=== PATIENT | female | born 1960 | race Caucasian/White ===

== ENCOUNTER 2018-03-30 10:40 | Inpatient (IN) | payer MEDICAID ==
[~2018-03-30] VITALS: Ht 157.5 cm; Wt 88.0 kg
[2018-03-30] MEDS ORDERED: SODIUM CHLORIDE 0.9% 1,000 ML IV ONE (11:34)
[2018-03-30] MEDS ORDERED: ONDANSETRON HCL 4MG/2ML INJ IV STA (11:34)
[2018-03-30] MEDS ORDERED: ACETAMINOPHEN 325MG TABLET PO ONE (11:45)
[2018-03-30 12:05] LABS: HEMATOCRIT. 41.5 % (36.0-48.0); HEMOGLOBIN. 13.9 g/dL (12.0-16.0); MEAN CORPUSCULAR HEMOGLOBIN 30.1 pg (28.0-32.0); MEAN CORPUSCULAR VOLUME 89.7 fL (81.0-99.0); MEAN PLATELET VOLUME 8.4 fl (7.4-10.4); PLATELET 235 x1000/uL (130-400); RED BLOOD CELL COUNT 4.62 mill/uL (4.2-5.4); RED CELL DISTRIBUTION WIDTH 13.8 % (11.6-14.6)
[2018-03-30 12:13] LABS: PROTHROMBIN TIME 10.5 sec (9.1-11.1)
[2018-03-30 12:14] LABS: CHLORIDE 99 mEq/L (98-107)
[2018-03-30 12:39] LABS: PLATELET ESTIMATE NORMAL
[2018-03-30] MEDS ORDERED: CLINDAMYCIN 900 MG in DEXTROSE 5% WATER 50 ML IV ONE (12:45)
[2018-03-30] MEDS ORDERED: VANCOMYCIN 1 G PREMIX 200 ML IV ONE (12:45)
[2018-03-30] MEDS ORDERED: ACETAMINOPHEN 325MG TABLET PO PRN (13:45)
[2018-03-30] MEDS ORDERED: ONDANSETRON HCL 4MG/2ML INJ IV PRN (13:45)
[2018-03-30] MEDS ORDERED: IPRATROPIUM/ALBUTEROL 0.5-3(2.5)MG/3ML NEB INH PRN (13:45)
[2018-03-30] MEDS ORDERED: ENOXAPARIN 40MG/0.4ML SYR SUBCUT SCH (13:45)
[2018-03-30] MEDS ORDERED: DOCUSATE SODIUM 100MG CAPSULE PO PRN (13:45)
[2018-03-30] MEDS ORDERED: HYDROCODONE/ACETAMINOPHEN 5/325MG TABLET PO PRN (13:45)
[2018-03-30] MEDS ORDERED: CLONIDINE 0.1MG TABLET PO PRN (13:45)
[2018-03-30] MEDS ORDERED: MAGNESIUM/ALUMINUM HYDROXIDE/SIMETHICONE 30ML UDC PO PRN (13:45)
[2018-03-30 15:30] VITALS: BP 126/80
[2018-03-30] MEDS: SODIUM CHLORIDE 0.9% 1,000 ML IV SCH (17:08)
[2018-03-30] MEDS ORDERED: LISI-604 PO (17:40)
[2018-03-30] MEDS ORDERED: HYDR25TA PO (17:40)
[2018-03-30] MEDS ORDERED: ASPI-1159 PO (17:40)
[2018-03-30] MEDS ORDERED: PIPERACILLIN/TAZ 3.375G PREMIX 50 ML IV SCH (18:00)
[2018-03-30] MEDS: VANCOMYCIN 1 G PREMIX 200 ML IV SCH (18:01)
[2018-03-30] MEDS: CLOTRIMAZOLE 1% CREAM 30GM TOP SCH (18:04)
[2018-03-30 20:00] VITALS: BP 102/63
[2018-03-30] MEDS: ENOXAPARIN 30MG/0.3ML SYR SUBCUT SCH (20:47)
[2018-03-30] MEDS: LEVOFLOXACIN 500MG PREMIX 100 ML IV SCH (20:47)
[2018-03-30 20:55] LABS: CHLORIDE 100 mEq/L (98-107)
[2018-03-31] VITALS: BP 95/60
[2018-03-31] MEDS ORDERED: POTASSIUM CHLORIDE 20MEQ TABLET SR PO NR (03:30)
[2018-03-31 04:00] VITALS: BP 101/64
[2018-03-31 08:00] VITALS: BP 107/63
[2018-03-31] MEDS: ENOXAPARIN 30MG/0.3ML SYR SUBCUT SCH ×2 (08:54→20:34)
[2018-03-31] MEDS: SODIUM CHLORIDE 0.9% 1,000 ML IV SCH (08:55)
[2018-03-31] MEDS: CLOTRIMAZOLE 1% CREAM 30GM TOP SCH ×2 (08:55→20:34)
[2018-03-31] MEDS: LISINOPRIL 20MG TABLET PO SCH (09:55)
[2018-03-31] MEDS: HYDROCHLOROTHIAZIDE 25MG TABLET PO SCH (09:55)
[2018-03-31 12:00] VITALS: BP 112/61
[2018-03-31] MEDS: VANCOMYCIN 1 G PREMIX 200 ML IV SCH (12:20)
[2018-03-31 15:41] LABS: BASOPHILS % 0.3 % (0.0-2.0); EOSINOPHILS % 2.2 % (0.0-5.0); HEMATOCRIT. 39.7 % (36.0-48.0); HEMOGLOBIN. 13.3 g/dL (12.0-16.0); LYMPHOCYTES % 9.2 % (20.0-50.0); MEAN CORPUSCULAR HEMOGLOBIN 30.2 pg (28.0-32.0); MEAN CORPUSCULAR VOLUME 90.1 fL (81.0-99.0); MEAN PLATELET VOLUME 8.7 fl (7.4-10.4); MONOCYTES % 4.3 % (2.0-8.0); PLATELET 238 x1000/uL (130-400); RED BLOOD CELL COUNT 4.41 mill/uL (4.2-5.4); RED CELL DISTRIBUTION WIDTH 13.7 % (11.6-14.6)
[2018-03-31 15:53] LABS: CHLORIDE 99 mEq/L (98-107)
[2018-03-31 16:00] VITALS: BP 106/66
[2018-03-31 16:34] LABS: CLARITY URINE CLEAR (CLEAR); COLOR URINE YELLOW (YELLOW); KETONES URINE TRACE (NEGATIVE); LEUKOCYTE ESTERASE URINE 2+ (NEGATIVE); NITRITE URINE NEGATIVE (NEGATIVE); OCCULT BLOOD URINE NEGATIVE (NEGATIVE); PH URINE 6.5 (4.5-8.0); PROTEIN URINE NEGATIVE (NEGATIVE); SPECIFIC GRAVITY URINE 1.014 (1.005-1.030)
[2018-03-31 19:31] LABS: *AMPHETAMINES SCREEN URINE NEGATIVE (NEGATIVE); *BARBITURATES SCREEN URINE NEGATIVE (NEGATIVE); *BENZODIAZEPINES SCREEN URINE NEGATIVE (NEGATIVE); *COCAINE SCREEN URINE NEGATIVE (NEGATIVE); CANNABINOID URINE SCREEN NEGATIVE (NEGATIVE); METHADONE URINE SCREEN NEGATIVE (NEGATIVE); OPIATES URINE SCREEN PRESUMTIVE POSITIVE (NEGATIVE); PHENCYCLIDINE URINE SCREEN NEGATIVE (NEGATIVE)
[2018-03-31 20:00] VITALS: BP 102/54
[2018-03-31] MEDS: LEVOFLOXACIN 500MG PREMIX 100 ML IV SCH (20:33)
[2018-03-31 22:14] LABS: BASOPHILS % 0.5 % (0.0-2.0); EOSINOPHILS % 3.7 % (0.0-5.0); HEMATOCRIT. 37.8 % (36.0-48.0); HEMOGLOBIN. 12.7 g/dL (12.0-16.0); LYMPHOCYTES % 10.8 % (20.0-50.0); MEAN CORPUSCULAR HEMOGLOBIN 30.2 pg (28.0-32.0); MEAN CORPUSCULAR VOLUME 89.9 fL (81.0-99.0); MEAN PLATELET VOLUME 8.7 fl (7.4-10.4); MONOCYTES % 7.9 % (2.0-8.0); NEUTROPHILS % 77.1 % (40.0-76.0); PLATELET 226 x1000/uL (130-400); RED BLOOD CELL COUNT 4.21 mill/uL (4.2-5.4); RED CELL DISTRIBUTION WIDTH 13.7 % (11.6-14.6)
[2018-03-31] MEDS: VANCOMYCIN 750 MG PREMIX 150 ML IV SCH (23:10)
[2018-04-01] VITALS (7 sets, daily range): BP systolic 99–131; BP diastolic 50–86
[2018-04-01 07:50] LABS: PHOSPHORUS 2.5 mg/dL (2.5-4.9)
[2018-04-01] MEDS: HYDROCHLOROTHIAZIDE 25MG TABLET PO SCH (09:23)
[2018-04-01] MEDS: LISINOPRIL 20MG TABLET PO SCH (09:23)
[2018-04-01] MEDS: CLOTRIMAZOLE 1% CREAM 30GM TOP SCH (09:25)
[2018-04-01] MEDS: ENOXAPARIN 30MG/0.3ML SYR SUBCUT SCH (09:25)
[2018-04-01] MEDS: VANCOMYCIN 750 MG PREMIX 150 ML IV SCH (12:12)
[2018-04-01] MEDS: SODIUM CHLORIDE 0.9% 1,000 ML IV SCH ×2 (12:20→15:44)
[2018-04-01] MEDS ORDERED: MAGNESIUM 1 G PREMIX 100 ML IV NR ×2 (12:45→14:00)
[2018-04-01] MEDS ORDERED: VANCOMYCIN 1 G PREMIX 200 ML IV SCH (23:00)
== END 2018-04-01 21:30 | disposition home or self-care (01) | DRG 720 ==
LOC: ER 12:08 → 6EST 13:20 → EDBEDREQ 13:23 → ENRESERV 13:35
PROVIDERS: ADMIT Internal Medicine; ATTEND Internal Medicine
DX: A41.9 Sepsis, unspecified organism (principal); E44.0 Moderate protein-calorie malnutrition; E66.01 Morbid (severe) obesity due to excess calories; L03.116 Cellulitis of left lower limb; I10 Essential (primary) hypertension; I83.93 Asymptomatic varicose veins of bilateral lower extremities; Z60.2 Problems related to living alone; Z88.0 Allergy status to penicillin; Z68.35 Body mass index [BMI] 35.0-35.9, adult; Z79.82 Long term (current) use of aspirin; Z79.899 Other long term (current) drug therapy
CPT/HCPCS: 36415; 71045; 73590; 73721; 80048; 80061; 80202; 80305; 83605; 83735; 84100; 84145; 84443; 84484; 93005; 93971; 96361; 96365; 96375; 97162; 99285; C1893; J1650; J1956; J2405; J3370; J3475; J3490; J7030; J7060